=== PATIENT | female | born 2000 | race Asian ===

== ENCOUNTER → 2022-03-02 | Outpatient (CLI) | payer BC | END | disposition home or self-care (01) | LOC: LABWHC1 12:49 | PROVIDERS: ATTEND Obstetrics & Gynecology Reproductive Endocrinology | DX: E28.2 Polycystic ovarian syndrome (principal); N97.8 Female infertility of other origin | CPT/HCPCS: 36415; 84402; 84403 ==

== ENCOUNTER → 2022-04-19 | Outpatient (CLI) | payer OTHER, BC ==
--- NOTE | 2022-04-19 22:09 | MR ---
EXAMINATION TYPE: MR pituitary wo/w con DATE OF EXAM: 04/19/2022 9:24 PM CLINICAL INDICATION:Female, 22 years old with history of E22.1; hyperprolactinemia COMPARISON: None TECHNIQUE: Multi planar, multi sequence imaging was performed through the brain. Specialized thin s equences were obtained through the pituitary gland/sella turcica. Pre-and post gadolinium sequences were obtained. IV Contrast: 7 cc Gadavist FINDINGS: The garber-white junctions, ventricular system, and basal cisterns appear unremarkable. Low T1/high T2 signal lesion in the pituitary more inferiorly measuring 2 x 2 x 2 mm is present which demonstrates d elayed enhancement on postcontrast imaging with respect to the remainder of the gland. The pituitary stalk is not deviated. Diffusion-weighted imaging shows no evidence of restricted diffusion to sugges t infarct. The intracranial arterial flow voids are intact. IMPRESSION: 1. 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 2. No evidence of intracranial mass nor acute/subacute CVA.
== END | disposition home or self-care (01) ==
LOC: RADMRIMAIN 20:30
PROVIDERS: ATTEND Obstetrics & Gynecology Reproductive Endocrinology
DX: E23.6 Other disorders of pituitary gland (principal); E22.1 Hyperprolactinemia
CPT/HCPCS: 70553; A9585

== ENCOUNTER → 2023-03-07 | Outpatient (CLI) | payer MEDICARE, OTHER | END | disposition home or self-care (01) | LOC: LABPAT 12:40 | PROVIDERS: ATTEND Obstetrics & Gynecology Obstetrics | DX: Z53.9 Procedure and treatment not carried out, unspecified reason (principal) ==

== ENCOUNTER 2023-03-09 11:52 | Day surgery (SDC) | payer BC, MEDICARE, OTHER ==
[~2023-03-09 11:52] MED LIST: DEXAMETHASONE SOD PHOSPHATE 4 MG/ML 1 ML VIAL IV ONE; HYDROmorphone 0.5 MG/0.5 ML SYRINGE IVP PRN; LACTATED RINGERS 1,000 ML IV SCH; LIDOCAINE 1% (10MG/ML) FOR IV START INTRADERMA PRN; ONDANSETRON 4 MG/2 ML VIAL IVP ONE; Pre Op ABX Message 1 EACH MISC MISCELLANE ONE; SCOPOLAMINE 1 MG/72 HR PATCH TRANSDERM ONE; droPERidol 5 MG/2 ML VIAL IVP ONE
[2023-03-09 13:34] VITALS: RESP 16
[2023-03-09 13:50] LABS: Glucose,Whole Blood 78 mg/dL (70-110)
[2023-03-09 13:52] LABS: Basophils # (A) 0.1 k/uL (0-0.2); Basophils % (A) 1 %; Eosinophils # (A) 0.2 k/uL (0-0.7); Eosinophils % (A) 2 %; HCT 35.4 % (34.0-46.0); Lymphocytes % (A) 19 %; MCH 31.3 pg (25.0-35.0); MCHC 34.1 g/dL (31.0-37.0); MCV 91.9 fL (80.0-100.0); Mean Platelet Volume 7.6; Monocytes # (A) 0.3 k/uL (0-1.0); Monocytes % (A) 3 %; Neutrophils # (A) 7.6 k/uL (1.3-7.7); Neutrophils % (A) 74 %; Platelet Count 311 k/uL (150-450); RBC 3.85 m/uL (3.80-5.40); RDW 12.7 % (11.5-15.5); WBC 10.3 k/uL (3.8-10.6)
[2023-03-09] MEDS ORDERED: PROPOFOL 10 MG/ML 20 ML VIAL IV ONE (14:03)
[2023-03-09] MEDS ORDERED: fentaNYL (PF) 50 MCG/ML 2 ML AMP ONE (14:03)
[2023-03-09] MEDS ORDERED: LIDOCAINE 1% INJ 10MG/ML (20 ML MDV) ONE (14:03)
[2023-03-09] MEDS ORDERED: KETOROLAC 15 MG/ML 1 ML VIAL ONE (14:03)
[2023-03-09] MEDS ORDERED: MIDAZOLAM 2 MG/2 ML VIAL ONE (14:03)
[2023-03-09 14:33] LABS: Basophils % (A) 0 %; Eosinophils # (A) 0.1 k/uL (0-0.7); Eosinophils % (A) 1 %; HCT 33.2 % (34.0-46.0); HGB 11.4 gm/dL (11.4-16.0); Lymphocytes # (A) 2.2 k/uL (1.0-4.8); Lymphocytes % (A) 23 %; MCH 31.6 pg (25.0-35.0); MCHC 34.4 g/dL (31.0-37.0); Mean Platelet Volume 7.7; Monocytes # (A) 0.3 k/uL (0-1.0); Monocytes % (A) 3 %; Neutrophils # (A) 7.1 k/uL (1.3-7.7); Neutrophils % (A) 71 %; Platelet Count 318 k/uL (150-450); RBC 3.61 m/uL (3.80-5.40); RDW 12.7 % (11.5-15.5)
--- NOTE | 2023-03-09 14:39 | P.OP ---
Date of Procedure: 03/09/23 Preoperative Diagnosis: Missed AB Postoperative Diagnosis: Same Procedure(s) Performed: Suction dilation and curettage Anesthesia: MAC Surgeon: Elvie Byrne Estimated Blood Loss (ml): 10 IV fluids (ml): 400 Urine output (ml): 200 Pathology: other (Uterine contents) Condition: stable Disposition: PACU Indications for Procedure: 23-year-old female that was seen in our time a for fertility testing. Patient was undergoing IVF stimulation cycle when during a she will she was found to be . Patient had multiple ultrasounds revealing nonviable . Patient elected suction dilation and curettage with genetic testing of products of conception. Operative Findings: Moderate amount of products of conception noted upon suction Description of Procedure: Patient was taken back to the operating suite where general anesthesia was obtained without difficulty by the anesthesia department. She was prepped and draped in normal sterile fashion in the dorsal lithotomy position. I [place] catheter was used to drain the bladder of clear yellow urine. A weighted speculum was placed in the posterior vaginal vault. The anterior lip of the cervix is visualized grasped with a single-tooth tenaculum and serially dilated. An 8 mm curved Persian curette was then placed through the cervix and toward the endometrial cavity. Suction was activated and the uterus was cleared of all contents. A gentle sharp curettage revealed an empty uterine cavity. The suction curet was placed into the cavity once again to ensure all products had been removed. No products were appreciated in the suction tubing. The suction curet was removed. The single-tooth tenaculum was taken off of the anterior lip of the cervix. Hemostasis was noted. A small amount of bleeding was a ppreciated after visualization therefore silver nitrate of was placed on one of the single-tooth tenaculum sites. Hemostasis was then noted completely. All instruments removed from the patient's vaginal vault. All counts were noted be correct 2. Patient tolerated procedure well and was taken the recovery room awake in stable condition.
[2023-03-09 15:12] VITALS: TEMP 96.9
[2023-03-09 16:02] VITALS: BP 109/76; PULSE 101
== END 2023-03-09 16:03 | disposition home or self-care (01) ==
LOC: OR 11:52
PROVIDERS: ATTEND Obstetrics & Gynecology Obstetrics
DX: O02.1 Missed abortion (principal)
CPT/HCPCS: 59820; 86900; 86901; 88305; 85025; 86850; J2250; J1100; J2405; J2001; J3010; J1885; J2704

== ENCOUNTER 2023-03-17 23:13 | Emergency (ER) | payer MEDICARE ==
[2023-03-17 23:24] VITALS: RESP 18
[2023-03-18] MEDS ORDERED: ONDANSETRON 4 MG/2 ML VIAL IVP STA (00:07)
[2023-03-18] MEDS ORDERED: SODIUM CHLORIDE 0.9% 1,000 ML IV ONE (00:07)
[2023-03-18] MEDS ORDERED: DICYCLOMINE 20 MG TAB PO STA (00:08)
--- NOTE | 2023-03-18 00:12 | ED ---
Abdominal Pain HPI - General Chief Complaint: Abdominal Pain Stated Complaint: Abdominal Pain, Vomiting, Vaginal Bleeding Time Seen by Provider: 03/17/23 23:27 Source: patient Mode of arrival: ambulatory Limitations: no limitations - History of Present Illness Initial Comments: This patient is 23-year-old woman who presents to have evaluation for lower abdominal pain and vaginal bleeding. She states that the symptoms came on and have been worse over the past approximately 3-4 hours. She states she had bleeding through one overnight had. The patient's history includes having had a D&C on March [address] Evans. She states she did well for approximately 4 days and then had a little bit of bleeding and pain that resolved. Tonight the symptoms came on. She tried taking ibuprofen which didn't relieve the symptoms much. She then took a [place] that she had been prescribed earlier. She states that after that she had the onset of feeling very warm, having nausea and vomited. The pain in the abdomen became very severe and she felt she should be seen here. She states that the symptoms have improved somewhat since they were at their worst. MD Complaint: abdominal pain -: hour(s) Location: LLQ, RLQ, suprapubic Radiation: none Migration to: no migration Severity: moderate Quality: cramping Consistency: constant Improves With: nothing Worsens With: nothing Associated Symptoms: other - Related Data Home Medications Medication Instructions Recorded Confirmed Aspirin 81 mg PO DAILY 03/07/23 03/21/23 Cetirizine HCl [Zyrtec] 10 mg PO DAILY 03/07/23 03/21/23 Levothyroxine Sodium [Synthroid] 50 mcg PO DAILY 03/07/23 03/21/23 Melatonin 10 mg PO HS 03/07/23 03/21/23 Progesterone, Micronized 200 mg PO BID 03/07/23 03/21/23 [Progesterone] Unk Fiber Gummie 1 tab PO DAILY 03/07/23 03/21/23 Unk Metformin (750) 1 tab PO BID 03/07/23 03/21/23 Unk Vitamin 1 tab PO DAILY 03/07/23 03/21/23 Previous Rx's Medication Instructions Recorded Acetaminophen Tab [Tylenol] 650 mg PO Q6H PRN #30 tab 03/21/23 Ibuprofen [Motrin] 600 mg PO Q6HR PRN #30 tab 03/21/23 Allergies Allergy/AdvReac Type Severity Reaction Status Date / Time Pertussis Vaccines Allergy low grade Verified 03/21/23 16:20 fever Review of Systems ROS Statement: Those systems with pertinent positive or pertinent negative responses have been documented in the HPI. ROS Other: All systems not noted in ROS Statement are negative. Constitutional: Denies: fever, chills, weakness Respiratory: Denies: cough, dyspnea Cardiovascular: Denies: chest pain, palpitations, edema Gastrointestinal: Reports: abdominal pain, nausea, vomiting. Denies: diarrhea, constipation, melena, hematochezia Genitourinary: Reports: abnormal menses. Denies: dysuria, hematuria Musculoskeletal: Denies: back pain Skin: Denies: rash Neurological: Denies: headache, weakness Past Medical History Past Medical History: Diabetes Mellitus, Thyroid Disorder Additional Past Medical History / Comment(s): watching blood sugars on metformin. pituatary issues- prolactin elevated. 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 hysterscopy and laporscopy. wisdom teeth Past Anesthesia/Blood Transfusion Reactions: No Reported Reaction Past Psychological History: No Psychological Hx Reported Smoking Status: Never smoker - Past Family History Mother History Unknown: Yes Additional Family Medical History / Comment(s): pt adopted General Exam Limitations: no limitations General appearance: alert, in no apparent distress Head exam: Present: atraumatic, normocephalic Eye exam: Present: normal appearance Neck exam: Present: normal inspection Respiratory exam: Present: normal lung sounds bilaterally. Absent: respiratory distress, wheezes, rales, rhonchi, stridor, accessory muscle use Cardiovascular Exam: Present: regular rate, normal rhythm, normal heart sounds. Absent: systolic murmur, diastolic murmur, rubs, gallop GI/Abdominal exam: Present: soft. Absent: distended, tenderness, guarding, rebound, rigid, mass, pulsatile mass, hernia Extremities exam: Present: normal inspection, normal capillary refill. Absent: pedal edema, calf tenderness Back exam: Present: normal inspection. Absent: CVA tenderness (R), CVA tenderness (L) Neurological exam: Present: alert Skin exam: Present: warm, dry, intact, normal color. Absent: rash Course Vital Signs 03/17/23 03/17/23 03/17/23 23:20 23:32 23:33 Temperature 97.9 F 98.0 F Pulse Rate 85 67 86 Respiratory 18 18 18 Rate Blood Pressure 97/63 106/73 O2 Sat by Pulse 97 99 99 Oximetry 03/18/23 03/18/23 03/18/23 00:00 01:00 02:00 Temperature Pulse Rate 72 73 74 Respiratory 18 18 18 Rate Blood Pressure 106/73 110/72 109/69 O2 Sat by Pulse 99 99 98 Oximetry 03/18/23 03/18/23 03:00 05:06 Temperature 98.1 F Pulse Rate 68 76 Respiratory 18 18 Rate Blood Pressure 112/74 102/68 O2 Sat by Pulse 97 100 Oximetry Medical Decision Making - Medical Decision Making This patient is 23-year-old woman with abdominal pain. The patient complaining of low abdominal pain and vaginal bleeding. She did decline gynecologic exam, but did have pelvic ultrasound. The ultrasound does show what appears to be complex cyst with suspected recent hemorrhage. The patient feeling better with medication. At this point she would like to go home and will have close follow- up with Dr. Evans. Discussed that ultrasound does indicate small chance of infection but patient feeling much better, not having fever, and only minimal tenderness. She understands to return if the symptoms recur or if any new symptoms develop. She is otherwise going to follow with Dr. Evans in the clinic [facility]. Was pt. sent in by a medical professional or institution (, PA, MANAGER INVESTMENT, urgent care, hospital, or [facility]...) When possible be specific @ -[No] Did you speak to anyone other than the patient for history (EMS, parent, family, police, friend...)? What history was obtained from this source @ -[No] Did you review nursing and triage notes (agree or disagree)? Why? @ -[I reviewed and agree with nursing and triage notes] Were old charts reviewed (outside hosp., previous admission, EMS record, old EKG, old radiological studies, urgent care reports/EKG's, [facility] records)? Report findings @ -[No old charts were reviewed] Differential Diagnosis (chest pain, altered mental status, abdominal pain women, abdominal pain men, vaginal bleeding, weakness, fever, dyspnea, syncope, headache, dizziness, GI bleed, back pain, seizure, CVA, palpatations, mental health, musculoskeletal)? @ -[Differential Abdominal Pain Women: Appendicitis, Cholecystitis, diverticulosis, ischemic bowel, pancreatitis, hepatitis, UTI, gastroenteritis, AAA, incarcerated hernia, bowel obstruction, constipation, inflammatory bowel, hepatitis, peptic ulcer disease, splenic infarction, perforated viscus, vulvitis, ovarian torsion, PID, kidney stone, placenta abruption, this is not meant to be an all-inclusive list EKG interpreted by me (3pts min.). @ -[As above] X-rays interpreted by me (1pt min.). @ -[None done] CT interpreted by me (1pt min.). @ -[None done] U/S interpreted by me (1pt. min.). @ -[None done] What testing was considered but not performed or refused? (CT, X-rays, U/S, labs)? Why? @ -[None] What meds were considered but not given or refused? Why? @ -[None] Did you discuss the management of the patient with other professionals (professionals i.e. , PA, MANAGER INVESTMENT, lab, RT, psych nurse, psychotherapist social worker, capsule filler, teacher, chief business officer, case resource manager)? Give summary @ -[No] Was smoking cessation discussed for >3mins.? @ -[No] Was critical care preformed (if so, how long)? @ -[No] Were there social determinants of health that impacted care today? How? (Homelessness, low income, unemployed, alcoholism, drug addiction, transportation, low edu. Level, literacy, decrease access to med. care, fdc, rehab)? @ -[No] Was there de-escalation of care discussed even if they declined (Discuss DNR or withdrawal of care, Hospice)? DNR status @ -[No] What co-morbidities impacted this encounter? (DM, HTN, Smoking, COPD, CAD, Cancer, CVA, ARF, Chemo, Hep., AIDS, mental health diagnosis, sleep apnea, morbid obesity)? @ -[None] Was patient admitted / discharged? Hospital course, mention meds given and route, prescriptions, significant lab abnormalities, going to OR and other pertinent info. @ -[As above Undiagnosed new problem with uncertain prognosis? @ -[No] Drug Therapy requiring intensive monitoring for toxicity (Heparin, Nitro, Insulin, Cardizem)? @ -[No] Were any procedures done? @ -[No] Diagnosis/symptom? @ -[Acute abdominal pain ovarian cyst Acute, or Chronic, or Acute on Chronic? @ -[Acute Uncomplicated (without systemic symptoms) or Complicated (systemic symptoms)? @ -[Uncomplicated Side effects of treatment? @ -[No] Exacerbation, Progression, or Severe Exacerbation? @ -[No] Poses a threat to life or bodily function? How? (Chest pain, [place], [place], pneumonia, PE, COPD, DKA, ARF, appy, cholecystitis, CVA, Diverticulitis, Homicidal, Suicidal, threat to staff... and all critical care pts) @ -[There is small risk associated with the free fluid in the abdomen, therefore patient to have close follow-up returning if any symptoms recur. She understands need for close follow-up - Lab Data Result diagrams: 03/18/23 00:33 03/18/23 00:33 Lab Results 03/18/23 03/18/23 03/18/23 Range/Units 00:33 00:33 00:33 WBC 17.6 H (3.8-10.6) k/uL RBC 3.99 (3.80-5.40) m/uL Hgb 12.4 (11.4-16.0) gm/dL Hct 37.0 (34.0-46.0) % MCV 92.8 (80.0-100.0) fL MCH 31.0 (25.0-35.0) pg MCHC 33.5 (31.0-37.0) g/dL RDW 12.6 (11.5-15.5) % Plt Count 353 (150-450) k/uL MPV 7.6 Neutrophils % 86 % Lymphocytes % 10 % Monocytes % 3 % Eosinophils % 1 % Basophils % 0 % Neutrophils # 15.1 H (1.3-7.7) k/uL Lymphocytes # 1.7 (1.0-4.8) k/uL Monocytes # 0.4 (0-1.0) k/uL Eosinophils # 0.2 (0-0.7) k/uL Basophils # 0.1 (0-0.2) k/uL Sodium 136 L (137-145) mmol/L Potassium (3.5-5.1) mmol/L Chloride 102 (98-107) mmol/L Carbon Dioxide 23 (22-30) mmol/L Anion Gap 11 mmol/L BUN 13 (7-17) mg/dL Creatinine 0.49 L (0.52-1.04) mg/dL Est GFR (CKD-EPI)AfAm >90 (>60 ml/min/1.73 sqM) Est GFR (CKD-EPI)NonAf >90 (>60 ml/min/1.73 sqM) Glucose 109 H (74-99) mg/dL Plasma Lactic Acid Faisal 1.3 (0.7-2.0) mmol/L Calcium 8.8 (8.4-10.2) mg/dL Total Bilirubin 2.0 H (0.2-1.3) mg/dL AST 90 H (14-36) U/L ALT 28 (4-34) U/L Alkaline Phosphatase 58 (38-126) U/L Total Protein 9.4 H (6.3-8.2) g/dL Albumin 5.3 H (3.5-5.0) g/dL Disposition Clinical Impression: Abdominal pain Disposition: HOME SELF-CARE Condition: Good Instructions (If sedation given, give patient instructions): Abdominal Pain (ED) Is patient prescribed a controlled substance at d/c from ED?: No Referrals: Jodi Killian MD [Primary Care Provider] - 1-2 days
[2023-03-18 00:37] LABS: Basophils # (A) 0.1 k/uL (0-0.2); Basophils % (A) 0 %; Eosinophils # (A) 0.2 k/uL (0-0.7); Eosinophils % (A) 1 %; HGB 12.4 gm/dL (11.4-16.0); Lymphocytes # (A) 1.7 k/uL (1.0-4.8); Lymphocytes % (A) 10 %; MCHC 33.5 g/dL (31.0-37.0); MCV 92.8 fL (80.0-100.0); Mean Platelet Volume 7.6; Monocytes # (A) 0.4 k/uL (0-1.0); Monocytes % (A) 3 %; Neutrophils # (A) 15.1 k/uL (1.3-7.7); Neutrophils % (A) 86 %; Platelet Count 353 k/uL (150-450); RBC 3.99 m/uL (3.80-5.40); RDW 12.6 % (11.5-15.5); WBC 17.6 k/uL (3.8-10.6)
[2023-03-18 00:54] LABS: ALT 28 U/L (4-34); AST 90 U/L (14-36); African American GFR (CKD) >90 (>60 ml/min/1.73 sqM); Albumin 5.3 g/dL (3.5-5.0); Alkaline Phosphatase 58 U/L (38-126); Anion Gap 11 mmol/L; Blood Urea Nitrogen 13 mg/dL (7-17); Calcium 8.8 mg/dL (8.4-10.2); Carbon Dioxide 23 mmol/L (22-30); Chloride 102 mmol/L (98-107); Glucose 109 mg/dL (74-99); Non-African American GFR(CKD) >90 (>60 ml/min/1.73 sqM); Sodium 136 mmol/L (137-145); Total Protein 9.4 g/dL (6.3-8.2)
[2023-03-18] MEDS ORDERED: MORPHINE SULFATE 4 MG/ML SYRINGE IV STA (04:45)
[2023-03-18 05:28] VITALS: BP 102/68; PULSE 76; TEMP 98.1
--- NOTE | 2023-03-18 05:52 | US ---
EXAM: US Pelvis Transvaginal CLINICAL HISTORY: ITS.REASON US Reason: pain after D+C TECHNIQUE: Real-time transvaginal pelvic ultrasound with image documentation. Transvaginal imaging was used for better evaluation of the endometrium and adnexa. COMPARISON: No relevant prior studies available. FINDINGS: Uterus/cervix: The uterus is anteverted and mildly retroflexed measuring 8.4 cm in length. The endometrial stripe is unremarkable measuring 9.7 mm. No myometrial mass. Right ovary: 3.1 cm anechoic lesion seen within the right ovary which may represent a dominant ovarian follicle versus ovarian cyst. The right ovary measures 4.0 x 3.7 x 3.3 cm. Normal blood flow. Left ovary: Likely complex cyst is seen within the left ovary measuring 2.8 cm. The left ovary measures 4.8 x 3.4 x 4.8 cm. Normal blood flow. Free fluid: Complex fluid is seen within the cul-de-sac measuring 4.8 x 4.6 x 1.9 cm. Bladder: Unremarkable. IMPRESSION: 1. Complex fluid seen within the cul-de-sac, this may represent hemorrhagic or infectious debris. 2. Likely dominant left ovarian follicle. 3. Unremarkable evaluation of the endometrial stripe. 4. Likely complex cyst seen within the left ovary. Consider follow-up ultrasound in 3 months time.
== END 2023-03-18 05:07 | disposition home or self-care (01) ==
LOC: EC 23:13
DX: R10.32 Left lower quadrant pain (principal); R10.31 Right lower quadrant pain; E11.9 Type 2 diabetes mellitus without complications; E07.9 Disorder of thyroid, unspecified; Z79.84 Long term (current) use of oral hypoglycemic drugs; Z79.890 Hormone replacement therapy; Z88.7 Allergy status to serum and vaccine
CPT/HCPCS: 99284 ×2; 96374 ×2; 96375 ×2; 96361 ×2; 36415; 80053; 83605; 85025; 93975; 76856; 76830; J2270; J2405

== ENCOUNTER 2023-03-21 15:22 | Day surgery (SDC) | payer MEDICARE ==
[~2023-03-21 15:22] MED LIST changes: -DEXAMETHASONE SOD PHOSPHATE 4 MG/ML 1 ML VIAL IV ONE; -LACTATED RINGERS 1,000 ML IV SCH; -LIDOCAINE 1% (10MG/ML) FOR IV START INTRADERMA PRN; -ONDANSETRON 4 MG/2 ML VIAL IVP ONE; -SCOPOLAMINE 1 MG/72 HR PATCH TRANSDERM ONE; -droPERidol 5 MG/2 ML VIAL IVP ONE
[2023-03-21 15:57] LABS: Glucose,Whole Blood 89 mg/dL (70-110)
[2023-03-21] MEDS ORDERED: LACTATED RINGERS 1,000 ML IV ONE ×3 (16:01→21:47)
[2023-03-21] MEDS ORDERED: LIDOCAINE 1% (10MG/ML) FOR IV START INTRADERMA ONE (16:01)
[2023-03-21] MEDS ORDERED: ONDANSETRON 4 MG/2 ML VIAL ONE (16:11)
[2023-03-21] MEDS ORDERED: ONDANSETRON 4 MG/2 ML VIAL IVP ONE (16:13)
[2023-03-21] MEDS ORDERED: DEXAMETHASONE SOD PHOSPHATE 4 MG/ML 1 ML VIAL IVP ONE (16:15)
[2023-03-21 16:28] LABS: Basophils # (A) 0.1 k/uL (0-0.2); Basophils % (A) 1 %; Eosinophils # (A) 0.2 k/uL (0-0.7); Eosinophils % (A) 3 %; HCT 33.8 % (34.0-46.0); HGB 11.5 gm/dL (11.4-16.0); Lymphocytes % (A) 23 %; MCH 31.1 pg (25.0-35.0); MCV 91.5 fL (80.0-100.0); Mean Platelet Volume 7.5; Monocytes # (A) 0.3 k/uL (0-1.0); Monocytes % (A) 3 %; Neutrophils # (A) 6.1 k/uL (1.3-7.7); Neutrophils % (A) 69 %; Platelet Count 378 k/uL (150-450); RDW 12.7 % (11.5-15.5); WBC 8.7 k/uL (3.8-10.6)
[2023-03-21] MEDS ORDERED: fentaNYL (PF) 50 MCG/ML 2 ML AMP IVP ONE (19:48)
[2023-03-21] MEDS ORDERED: HYDROmorphone (PF) 1 MG/ML ONE (19:50)
[2023-03-21] MEDS ORDERED: SUCCINYLCHOLINE CHLORIDE 200 MG/10 ML VIAL IV ONE (19:50)
[2023-03-21] MEDS ORDERED: ROCURONIUM 10 MG/ML (5 ML VIAL) IV ONE (19:50)
[2023-03-21] MEDS ORDERED: GLYCOPYRROLATE 0.2 MG/ML 2 ML VIAL ONE (19:50)
[2023-03-21] MEDS ORDERED: KETOROLAC 30 MG/ML 1 ML VIAL ONE (19:50)
[2023-03-21] MEDS ORDERED: PROPOFOL 10 MG/ML 20 ML VIAL IV ONE (19:50)
[2023-03-21] MEDS ORDERED: BUPIVACAINE (PF) 0.25% 30 ML VIAL SQ ONE (19:50)
[2023-03-21] MEDS ORDERED: ceFAZolin 1,000 MG VIAL IVPB ONE (19:50)
[2023-03-21] MEDS ORDERED: NEOSTIGMINE 1 MG/ML 10 ML VIAL ONE (19:50)
[2023-03-21] MEDS ORDERED: LIDOCAINE 1% INJ 10MG/ML (20 ML MDV) ONE (19:50)
[2023-03-21] MEDS ORDERED: LACTATED RINGERS 1,000 ML IV SCH (21:15)
--- NOTE | 2023-03-21 21:20 | P.OP ---
Date of Procedure: 03/21/23 Preoperative Diagnosis: Right Tubal Ectopic Postoperative Diagnosis: Same Procedure(s) Performed: Laparoscopic Right Salpingectomy, Evacuation of Hemoperitoneum Implants: None Anesthesia: KUNAL Surgeon: Maggie Contreras Estimated Blood Loss (ml): 200 IV fluids (ml): 1,000 Urine output (ml): 800 Pathology: other (right fallopian tube, ectopic ) Condition: stable Disposition: observation Indications for Procedure: Ms. Johansen is a 23 year old 12 days post-operative from a suction d&c for presumed missed . She presented this week with severe abdominal pain not improved with Motrin, nausea, and diarrhea. Ultrasonography in the office today showed no intrauterine and no evidence of retained products. However, there was a 7-8 centimeter complex mass medial to the right ovary suspicious for ectopic . There was also some complex fluid suspicious for hemoperitoneum seen on the ultrasound. Laparoscopic salpingectomy was discused with the patient and recommended given finding of blood in the pelvis, concerning for partial rupture. The risks, benefits, and alternatives for larparoscopic right salpingectomy were discussed with the patient including risk of bleeding, infection, damage to surrounding structures including bladder/bowel/ureters/ovaries. The patient understands these risks and desires to proceed with surgery as discussed. Operative Findings: Large right tubal ectopic seen, partially ruptured with approximately 300 cc of hemoperitoneum in the pelvis. Unicornuate uterus appreciates. Bilateral ovaries healthy-appearing. Left fallopian tube is seemingly also attached to the uterus (patient was previously told it was not). Description of Procedure: Patient was taken to the OR with IV fluid running and pneumatic compression stockings on both legs. General anesthesia was obtained without difficulty. The patient was placed in the dorsal lithotomy position with Dex-type stirrups with knees bent at 30 degree angles. Examination under anesthesia revealed a normal-sized, anteverted uterus. The patient as prepared and draped. The bladder was emptied. A speculum was placed into the vagina. The anterior lip of the cervix was grasped with a single-toothed tenaculum. A uterine manipulator was introduced. A vertical skin incision was made at the umbilical fold. The periumbilical skin was manually elevated. A 5mm trocar was inserted into the abdomen under direct laparoscopic visualization. Intraabdominal survey revealed lack of any visceral or vascular injury. The pelvic and abdominal anatomy was noted as above. Two additional laparoscopic assit ports were placed in the right and left lower quadrants. A Celia Grasper was used to corn picker the cornua of the right fallopian tube. This was then cauterized and cut with the LigaSure device sequentally from the cornua to the fimbriated end. The right lower quadrant incision was extended to accomodate a 10mm trocar. An EndoCatch bag was inserted through the trocar and used to remove the specimen. Excellent hemostasis was noted at the end of the case. The patient tolerated the procedure well. All instruments were removed from the abdomen. 0-Vicryl was used to close the fascia at the right lower quadrant site. All incisions were closed with 4-0 Monocryl in a subcuticular fashion. The manipulator was removed from the vagina. All counts were correct times two. The patient was taken to the recovery room in stable condition.the recovery room in stable condition.
[2023-03-21] MEDS ORDERED: IBUPROFEN 600 MG TAB PO PRN (21:23)
[2023-03-21] MEDS ORDERED: SIMETHICONE 80 MG CHEWABLE PO PRN (21:23)
[2023-03-21 21:32] LABS: Glucose,Whole Blood 136 mg/dL (70-110)
[2023-03-21] MEDS ORDERED: HYDROmorphone 0.5 MG/0.5 ML SYRINGE IVP ONE (21:37)
[2023-03-21 21:50] VITALS: RESP 16
[2023-03-21 22:56] VITALS: TEMP 98.5
--- NOTE | 2023-03-22 06:17 | P.PN ---
Subjective Progress Note Date: 03/22/23 Principal diagnosis: POD#1 s/p Laparoscopic Right Salpingectomy 2/2 tubal ectopic The patient is doing well this morning and had no acute events overnight. She has no complaints this morning. She reports minimal lochia, passing flatus, voiding without difficulty, ambulating, and eating/drinking without nausea or vomiting. She denies pain. She denies chest pain, shortness of breathing, fevers, or chills overnight. She denies pain or swelling in the legs. Objective - Vital Signs Vital signs: Vital Signs Temp 98.5 F 03/21/23 22:00 Pulse 104 H 03/22/23 00:25 Resp 16 03/22/23 00:25 BP 103/61 03/22/23 00:25 Pulse Ox 94 L 03/22/23 00:25 FiO2 Intake & Output 03/21/23 03/21/23 03/22/23 06:59 18:59 06:59 Intake Total 100 1900 Output Total 1000 Balance 100 900 Weight 70.3 kg 70.3 kg Intake: IV 100 1900 Output: Urine 800 Estimated Blood Loss 200 - Gastrointestinal Gastrointestinal Comment(s): incisions clean, dry, and intact General gastrointestinal: Present: normal bowel sounds - Psychiatric Psychiatric: Present: A&O x's 3, appropriate affect, intact judgment & insight - Additional findings Additional findings: Extremities nontender, nonedematous - Labs CBC & Chem 7: 03/21/23 16:02 Labs: Abnormal Lab Results - Last 24 Hours (Table) 03/21/23 03/21/23 Range/Units 16:02 21:31 RBC 3.70 L (3.80-5.40) m/uL Hct 33.8 L (34.0-46.0) % POC Glucose (mg/dL) 136 H (70-110) mg/dL Assessment and Plan Assessment: 23 year old now POD#1 s/p Right Laparoscopic Salpingectomy 2/2 tubal ectopic Plan: Patient meeting all postoperative milestones appropriately. Plan for discharge home this morning. Will go home with prescription for Motrin and Tylenol, declines narcotics. Patient is to follow up in the office in 2 weeks for post- operative visit. Time with Patient: Less than 30
[2023-03-22 07:55] LABS: Basophils % (A) 0 %; Eosinophils % (A) 0 %; HCT 29.8 % (34.0-46.0); HGB 10.1 gm/dL (11.4-16.0); Lymphocytes # (A) 1.7 k/uL (1.0-4.8); Lymphocytes % (A) 13 %; MCH 31.3 pg (25.0-35.0); MCHC 33.8 g/dL (31.0-37.0); MCV 92.7 fL (80.0-100.0); Mean Platelet Volume 7.5; Monocytes # (A) 0.4 k/uL (0-1.0); Monocytes % (A) 3 %; Neutrophils # (A) 10.6 k/uL (1.3-7.7); Neutrophils % (A) 83 %; Platelet Count 366 k/uL (150-450); RBC 3.22 m/uL (3.80-5.40); RDW 12.6 % (11.5-15.5); WBC 12.8 k/uL (3.8-10.6)
[2023-03-22 08:33] VITALS: BP 111/73; PULSE 83
[2023-03-22] MEDS ORDERED: ACETAMINOPHEN TAB 325 MG TAB PO PRN (21:23)
== END 2023-03-22 09:21 | disposition home or self-care (01) ==
LOC: OR 15:22 → 4FBP 21:12 → OR 03-22 09:21
PROVIDERS: ATTEND Obstetrics & Gynecology
DX: O00.101 Right tubal pregnancy without intrauterine pregnancy (principal); Z79.899 Other long term (current) drug therapy; Z98.890 Other specified postprocedural states
CPT/HCPCS: 59151; 86900; 86901; 88305; 85025 ×2; 86850; J0330; J1100; J2710; J2405; J0690; J2001; J3010; J1885; J1170 ×2; J2704; J0665

== ENCOUNTER 2023-11-07 15:05 | Emergency (ER) | payer OTHER ==
[2023-11-07] MEDS ORDERED: diphenhydrAMINE 50 MG/ML 1 ML VIAL ONE (16:46)
[2023-11-07] MEDS ORDERED: SODIUM CHLORIDE 0.9% 1,000 ML BAG ONE (17:05)
[2023-11-07] MEDS ORDERED: MORPHINE SULFATE 4 MG/ML SYRINGE ONE (20:19)
== END 2023-11-07 20:35 | disposition home or self-care (01) ==
LOC: EC 15:05
CPT/HCPCS: 96361; 96365; 96375; 99283

== ENCOUNTER 2024-02-11 09:40 | Inpatient (IN) | payer MEDICARE ==
[2024-02-11] MEDS ORDERED: METHYLERGONOVINE 0.2 MG/ML 1 ML AMP IM PRN (10:26)
[2024-02-11] MEDS ORDERED: CARBOPROST TROMETHAMINE 250 MCG/ML 1 ML AMP IM PRN (10:26)
[2024-02-11] MEDS ORDERED: TERBUTALINE 1 MG/ML VIAL SQ PRN (10:26)
[2024-02-11] MEDS ORDERED: miSOPROStoL 200 MCG TAB PO PRN (10:26)
[2024-02-11] MEDS ORDERED: LIDOCAINE 0.5% (PF) 5 MG/ML (50 ML SDV) SQ PRN (10:26)
[2024-02-11] MEDS ORDERED: TRANEXAMIC 1,000 MG/100ML-NACL 1,000 MG in EMPTY BAG 1 BAG IV PRN (10:26)
[2024-02-11] MEDS ORDERED: OXYTOCIN 10 UNIT/ML 1 ML VIAL IM PRN (10:26)
[2024-02-11] MEDS ORDERED: miSOPROStoL 200 MCG TAB RECTAL PRN (10:26)
[2024-02-11 10:48] LABS: Basophils % (A) 0 %; Eosinophils # (A) 0.1 k/uL (0-0.7); Eosinophils % (A) 1 %; HGB 12.2 gm/dL (11.4-16.0); Lymphocytes # (A) 1.6 k/uL (1.0-4.8); Lymphocytes % (A) 17 %; MCH 30.9 pg (25.0-35.0); MCHC 32.9 g/dL (31.0-37.0); Mean Platelet Volume 9.2; Monocytes # (A) 0.4 k/uL (0-1.0); Monocytes % (A) 4 %; Neutrophils # (A) 7.2 k/uL (1.3-7.7); Neutrophils % (A) 76 %; Platelet Count 195 k/uL (150-450); RBC 3.93 m/uL (3.80-5.40); RDW 13.6 % (11.5-15.5); WBC 9.4 k/uL (3.8-10.6)
[2024-02-11] MEDS: AMPICILLIN 2,000 MG in SODIUM CHLORIDE 0.9% 100 ML IVPB STA (12:31)
[2024-02-11] MEDS: LACTATED RINGERS 1,000 ML IV SCH (12:31)
[2024-02-11] MEDS ORDERED: NALBUPHINE 10 MG/ML (10 ML MDV) IV PRN (13:17)
--- NOTE | 2024-02-11 13:17 | P.HPOB ---
History of Present Illness H&P Date: 02/11/24 Chief Complaint: IUP at 36-4/7 weeks, spontaneous rupture membranes This is a 24-year-old -0-1-0 at 36-4/7 weeks that presents to labor and delivery with complaints of rupture of membranes. Patient states she noted passage of her mucous plug yesterday with some leakage. AmniSure noted to be positive in triage. Patient has been receiving routine care which has been complicated by a diagnosis of a unicornuate uterus, known hypothyroidism that has been controlled. This was achieved by IVF.. Patient does note good movement, denies contractions. On blood work this patient has a blood type of O+, rubella status immune, hepatitis B surface engine negative, HIV negative, RPR is nonreactive, hepatitis C is nonreactive, grew beta strep cultures negative. Review of Systems Constitutional: Denies chills, Denies fatigue, Denies fever Ears, nose, mouth and throat: Denies headache Cardiovascular: Reports leg edema Respiratory: Denies dyspnea Gastrointestinal: Denies constipation, Denies diarrhea, Denies nausea, Denies vomiting Genitourinary: Reports Past Medical History Past Medical History: Thyroid Disorder Additional Past Medical History / Comment(s): watching blood sugars on metformin. pituatary issues- prolactin elevated. 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 hysterscopy and laporscopy. wisdom teeth Past Anesthesia/Blood Transfusion Reactions: No Reported Reaction Past Psychological History: No Psychological Hx Reported Smoking Status: Never smoker Past Alcohol Use History: Occasional Past Drug Use History: None Reported - Past Family History Mother History Unknown: Yes Additional Family Medical History / Comment(s): pt adopted Medications and Allergies Home Medications Medication Instructions Recorded Confirmed Type Aspirin 81 mg PO DAILY 03/07/23 02/11/24 History Cetirizine HCl [Zyrtec] 10 mg PO DAILY 03/07/23 02/11/24 History Levothyroxine Sodium [Synthroid] 50 mcg PO DAILY 03/07/23 02/11/24 History Unk Metformin (750) 1 tab PO BID 03/07/23 02/11/24 History Unk Vitamin 1 tab PO DAILY 03/07/23 02/11/24 History Allergies Allergy/AdvReac Type Severity Reaction Status Date / Time Pertussis Vaccines AdvReac low grade Verified 02/11/24 09:48 fever Exam Osteopathic Statement: *. No significant issues noted on an osteopathic structural exam other than those noted in the History and Physical/Consult. Vital Signs Temp Pulse Resp BP 02/11/24 10:29 97.4 F L 82 18 124/82 Intake and Output 02/10/24 02/11/24 02/11/24 22:59 06:59 14:59 Other: # Voids 1 Weight 78.018 kg Targeted physical exam is performed this date General Is well-nourished well- developed female in no acute distress, breathing is noted to be nonlabored, heart has a regular rate and rhythm, abdomen is gravid, on cervical exam she is fingertip/50/-3 station vertex presentation was confirmed by ultrasound last week. Dilapan was placed according to guidelines. Cervix was washed with Betadine, 5 Dilapan rods were placed sequentially. Patient tolerated insertion well. Results Result Diagrams: 02/11/24 10:30 Assessment and Plan (1) 36 to 37 weeks gestation of Current Visit: Yes Status: Acute Code(s): STE1065 - SNOMED Code(s): 319136255 (2) PROM (premature rupture of membranes) Current Visit: Yes Status: Acute Code(s): O42.90 - SENA ROM, 7TH0 BETW RUPT & ONST LABR, UNSP WEEKS OF GEST SNOMED Code(s): 87629773 (3) Unicornuate uterus Current Visit: Yes Status: Acute Code(s): Q51.4 - UNICORNATE UTERUS SNOMED Code(s): 3211704 Plan: 24-year-old G2, P0 at 36-4/7 weeks that presents with complaints of spontaneous rupture of membranes yesterday. Patient is known GBS negative. Antibiotics are begun for prophylaxis given time since rupture of membranes. Dilapan was placed without difficulty given unfavorable cervix. Will plan Pitocin augmentation of labor early a.m. Options for analgesia are discussed including Nubain, nitrous, epidural.
[2024-02-11] MEDS: AMPICILLIN 1,000 MG in SODIUM CHLORIDE 0.9% 50 ML IVPB SCH (16:03)
[2024-02-12] MEDS: OXYTOCIN 30 UNITS/500 ML NS 30 UNIT in SALINE 1 500ML.BAG IV SCH (04:25)
[2024-02-12] MEDS ORDERED: fentaNYL (PF) 50 MCG/ML 5 ML AMP ONE (12:21)
[2024-02-12] MEDS ORDERED: SODIUM CHLORIDE 0.9% 250 ML BAG ONE (12:21)
[2024-02-12] MEDS ORDERED: ROPIVACAINE 5 MG/ML 30 ML VIAL ONE (12:21)
[2024-02-12] MEDS ORDERED: TRANEXAMIC 1,000 MG/100ML-NACL 1,000 MG in EMPTY BAG 1 BAG IV PRN (18:04)
[2024-02-12] MEDS ORDERED: CARBOPROST TROMETHAMINE 250 MCG/ML 1 ML AMP IM PRN (18:04)
[2024-02-12] MEDS ORDERED: miSOPROStoL 200 MCG TAB PO PRN (18:04)
[2024-02-12] MEDS: CITRIC ACID-SODIUM CITRATE 15 ML CUP PO ONE (18:14)
[2024-02-12] MEDS ORDERED: ePHEDrine 50 MG/ML 1 ML VIAL ONE (18:22)
[2024-02-12] MEDS ORDERED: ceFAZolin 1 GM/50 ML BAG (PMX) ONE (18:22)
[2024-02-12] MEDS ORDERED: MORPHINE SULFATE (PF) 0.3 MG/0.3 ML SYR ONE (18:22)
[2024-02-12] MEDS ORDERED: OXYTOCIN 30 UNITS/500 ML NS BAG IV ONE (18:22)
[2024-02-12] MEDS ORDERED: ONDANSETRON 4 MG/2 ML VIAL ONE (18:22)
--- NOTE | 2024-02-12 19:06 | P.OP ---
Date of Procedure: 02/12/24 Preoperative Diagnosis: IUP at 36 and 5, PPROM, arrest of dilation, unicornuate uterus Postoperative Diagnosis: Same Procedure(s) Performed: Primary low-transverse section Anesthesia: epidural Surgeon: Elvie Byrne Lease Administrator #1: Roge Au Estimated Blood Loss (ml): 815 IV fluids (ml): 1,000 Urine output (ml): 100 (Consent treated in appearance) Pathology: none sent Condition: stable Disposition: observation Indications for Procedure: 24-year-old G2, P0 at 36-5/7 weeks who presented to labor and delivery yesterday with complaints of rupture of membranes Sunday, AmniSure was noted to be scant positive. Patient underwent Dilapan insertion was completed around 1300, she did well through the night. Dilapan was removed and patient was noted to be 4 cm, membrane was palpated and rupture of membrane was completed copious clear fluid was appreciated. Pitocin was started for augmentation of labor, patient did become uncomfortable and request epidural. Epidural was placed without di fficulty by the anesthesia department. Throughout the day patient made no cervical change. Given length of time since rupture and no cervical change throughout the day patient was counseled on primary low-transverse section. Discussion was had with patient and significant other all questions were answered, patient stated understanding and wished to proceed. Operative Findings: Unicornuate uterus appreciated, absence of right fallopian tube underdeveloped left fallopian tube and appearance, normal ovaries bilaterally, viable male infant delivered at 1836, weight of 6 pounds 9 ounces, Apgars of 9 and 9 at 1 and 5 minutes respectively. Description of Procedure: The patient was prepped and draped in the usual fashion after epidural anesthesia was found to be adequate. A Pfannenstiel incision was made and extended of the abdominal cavity without difficulty. The bladder peritoneum was elevated and incised and reflected distally. A 2 cm incision was made in the transverse plane of the lower uterine segment to enter the uterus at which time clear fluid was noted. The incision was extended in both directions using the bandage scissors. The head was encountered within the field and delivered up and through the incision where the nose and mouth were thoroughly suctioned. Remainder of the was delivered onto the surgical field where the cord was doubly clamped, cut, and the infant was passed for resuscitative measures with weight and Apgars as noted above. The placenta was delivered manually, intact, and was grossly normal with a grossly normal three-vessel cord. The uterus was exteriorized and the interior cavity of the uterus swept of any remaining placental and membranous fragments with a laparotomy sponge. The margins of the incision were grasped with Allis clamps and the incision closed in 2 layers. First layer was a running locking layer of 0 Vicryl from margin to margin followed by a second layer of imbricating 0 Vicryl from margin to margin. Eating was noted on the right lateral edge therefore a [id number] 2 0 was used to obtain hemostasis. Any small points of bleeding were then made hemostatic with the Bovie. Once hemostasis was achieved, the posterior cul-de-sac was suctioned with a guard and the uterine and ovarian findings are as noted above. The uterus was replaced within the abdominal cavity and the gutters swept of any remaining blood fluid or clot. The incision was again reexamined and hemostasis was noted to be excellent. Any small point of bleeding were made hemostatic with the Bovie. Once hemostasis was achieved the parietal peritoneum was loosely reapproximated. The layer of muscles were examined and made hemostatic with the Bovie. Attention was then turned to the fascia which was closed with a running stitches of 0 Vicryl proceeding from the lateral edge to the other. The subcutaneous tissues were irrigated, made hemostatic with the Bovie, and reapproximated with a running stitch of 30 Vicryl. The skin was reapproximated with regular surgical callie. Estimated blood loss for the case was approximately 615 mL. All sponge instrument and needle counts are correct. There were no complications. The patient tolerated the procedure well and proceeded to the recovery room in stable condition. Both mother and infant are resting comfortably in recovery.
[2024-02-12] MEDS ORDERED: diphenhydrAMINE 50 MG CAP PO PRN (19:25)
[2024-02-12] MEDS ORDERED: SIMETHICONE 80 MG CHEWABLE PO PRN (19:25)
[2024-02-12] MEDS ORDERED: OXYTOCIN 30 UNITS/500 ML NS 30 UNIT in SALINE 1 500ML.BAG IV SCH (19:25)
[2024-02-12] MEDS ORDERED: ONDANSETRON 4 MG/2 ML VIAL IVP PRN (19:25)
[2024-02-12] MEDS ORDERED: NALOXONE 0.4 MG/ML 1 ML VIAL IV PRN (19:25)
[2024-02-12] MEDS ORDERED: ZOLPIDEM 5 MG TAB PO PRN (19:25)
[2024-02-12] MEDS ORDERED: METOCLOPRAMIDE 5 MG/ML 2 ML VIAL IVP PRN (19:25)
[2024-02-12] MEDS ORDERED: diphenhydrAMINE 50 MG/ML 1 ML VIAL IVP PRN (19:25)
[2024-02-12] MEDS: ACETAMINOPHEN IV (For NPO) 1,000 MG in EMPTY BAG 1 BAG IVPB ONE (20:07)
[2024-02-12] MEDS: LACTATED RINGERS 1,000 ML IV SCH (20:08)
[2024-02-13] MEDS: diphenhydrAMINE 50 MG/ML 1 ML VIAL IVP PRN (01:29)
[2024-02-13] MEDS: ACETAMINOPHEN TAB 500 MG TAB PO SCH (02:16)
[2024-02-13] MEDS: IBUPROFEN IV 800 MG in SODIUM CHLORIDE 0.9% 250 ML IV SCH (02:30)
[2024-02-13] MEDS: SENNOSIDES-DOCUSATE SODIUM 1 EACH TAB PO SCH (03:41)
[2024-02-13 05:09] LABS: Basophils % (A) 0 %; Eosinophils # (A) 0.2 k/uL (0-0.7); Eosinophils % (A) 2 %; HCT 31.6 % (34.0-46.0); HGB 10.4 gm/dL (11.4-16.0); Lymphocytes # (A) 1.3 k/uL (1.0-4.8); Lymphocytes % (A) 13 %; MCH 30.5 pg (25.0-35.0); MCHC 33.1 g/dL (31.0-37.0); MCV 92.2 fL (80.0-100.0); Mean Platelet Volume 9.5; Monocytes # (A) 0.4 k/uL (0-1.0); Monocytes % (A) 4 %; Neutrophils # (A) 8.2 k/uL (1.3-7.7); Neutrophils % (A) 80 %; Platelet Count 170 k/uL (150-450); RBC 3.43 m/uL (3.80-5.40); RDW 13.9 % (11.5-15.5); WBC 10.2 k/uL (3.8-10.6)
--- NOTE | 2024-02-13 06:45 | P.PN ---
Progress Note - Text Progress Note Date: 02/13/24 Postoperative day 1 status post section under epidural anesthesia, and epidural morphine given for postoperative analgesia, patient doing well, there is no anesthesia related complications, Patient had no headache, vital signs stable , VAS 3/10, using oral pain medication Assessment and plan= postop day 1 status post , doing well there is no anesthesia related complication.
--- NOTE | 2024-02-13 08:43 | P.PNOBGPC ---
Subjective - Subjective Principal diagnosis: POD 1 LTCS Interval history: Patient is doing well post operatively. She is ambulating and voiding without difficulty, She is tolerating a regular diet without nausea or vomiting. lochia is minimal. Pain is well controlled Breast feeding is going well Patient reports: Reports appetite normal, Reports voiding normally, Reports pain well controlled, Reports ambulating normally [place]: doing well, nursing well Objective - Vital Signs Latest vital signs: Vital Signs Temp Pulse Resp BP Pulse Ox 02/13/24 08:31 98.1 F 75 16 106/70 95 02/13/24 04:00 94 16 108/66 02/12/24 23:47 98.3 F 91 16 106/68 96 02/12/24 21:02 100 16 105/61 02/12/24 20:47 111 H 16 110/60 02/12/24 20:32 115 H 18 111/67 96 02/12/24 20:17 109 H 16 112/87 95 02/12/24 20:02 116 H 16 110/66 95 02/12/24 19:47 104 H 16 101/59 98 02/12/24 19:32 109 H 16 108/63 98 02/12/24 19:17 103 H 18 103/43 96 02/12/24 19:02 98.1 F 103 H 18 113/56 95 Intake and Output 02/12/24 02/13/24 02/13/24 22:59 06:59 14:59 Intake Total 600 Output Total 1115 1000 Balance -1115 -400 Intake: Oral 600 Output: Urine 400 1000 Uretheral (Cardenas) 1000 Output, Quantitative 715 Blood Loss Other: Voiding Method Indwelling Catheter Indwelling Catheter # Voids 1 # Bowel Movements 0 - Exam Extremities: Present: normal, edema Abdomen: Present: normal appearance, soft Incision: Present: normal, dry, intact Uterus: Present: normal, firm - Labs Labs: Abnormal Lab Results - Last 24 Hours (Table) 02/13/24 Range/Units 04:54 RBC 3.43 L (3.80-5.40) m/uL Hgb 10.4 L (11.4-16.0) gm/dL Hct 31.6 L (34.0-46.0) % Neutrophils # 8.2 H (1.3-7.7) k/uL Assessment and Plan (1) 36 to 37 weeks gestation of Current Visit: Yes Status: Acute Code(s): [id number] - SNOMED Code(s): 263598910 (2) PROM (premature rupture of membranes) Current Visit: Yes Status: Acute Code(s): O42.90 - SENA ROM, 7TH0 BETW RUPT & ONST LABR, UNSP WEEKS OF GEST SNOMED Code(s): 78721596 (3) Unicornuate uterus Current Visit: Yes Status: Acute Code(s): Q51.4 - UNICORNATE UTERUS SNOMED Code(s): 0524073 (4) Status post section Current Visit: Yes Status: Acute Code(s): Z98.891 - HISTORY OF UTERINE SCAR FROM PREVIOUS SURGERY SNOMED Code(s): 931836743 (5) Arrest of dilation, delivered, current hospitalization Current Visit: Yes Status: Acute Code(s): O62.1 - SECONDARY UTERINE INERTIA SNOMED Code(s): 59446323 Plan: Patient is doing well postoperatively, will continue routine post operative care. Anticipate discharge home tomorrow
[2024-02-13] MEDS: IBUPROFEN 800 MG TAB PO SCH (10:58)
[2024-02-13] MEDS: LORATADINE 10 MG TAB PO PRN (13:54)
[2024-02-14] MEDS ORDERED: IBUPROFEN 800 MG TAB PO SCH
[2024-02-14 00:15] VITALS: RESP 16
[2024-02-14] MEDS: diphenhydrAMINE 25 MG CAP PO PRN (02:04)
--- NOTE | 2024-02-14 09:47 | P.PNOBGPC ---
Subjective - Subjective Principal diagnosis: Postop day 2, primary arrest of dilation, unicornuate uterus Interval history: Patient is overall doing well postoperatively. She is struggling with breast- feeding secondary to a tongue-tie and the infant. Patient has moderate pain control, but is nervous about going home. Lochia is minimal to moderate. She is ambulating and voiding without difficulty. She is tolerating a regular diet without nausea or vomiting. Patient reports: Reports appetite normal, Reports voiding normally, Reports pain well controlled, Reports ambulating normally [place]: doing well Objective - Vital Signs Latest vital signs: Vital Signs Temp Pulse Resp BP Pulse Ox 02/14/24 08:00 97.6 F 75 16 119/75 99 02/14/24 00:00 98.6 F 79 16 114/73 97 02/13/24 16:00 97.9 F 79 17 104/76 97 02/13/24 12:44 97.8 F 02/13/24 11:39 99.4 F 78 16 101/66 93 L Intake and Output 02/13/24 02/14/24 02/14/24 22:59 06:59 14:59 Other: # Voids 1 2 2 - Exam Extremities: Present: normal, edema Abdomen: Present: normal appearance, soft Incision: Present: normal, dry, intact Uterus: Present: normal, firm Assessment and Plan (1) 36 to 37 weeks gestation of Current Visit: Yes Status: Acute Code(s): BSW2113 - SNOMED Code(s): 089064448 (2) PROM (premature rupture of membranes) Current Visit: Yes Status: Acute Code(s): O42.90 - SENA ROM, 7TH0 BETW RUPT & ONST LABR, UNSP WEEKS OF GEST SNOMED Code(s): 52873887 (3) Unicornuate uterus Current Visit: Yes Status: Acute Code(s): Q51.4 - UNICORNATE UTERUS SNOMED Code(s): 8398493 (4) Status post section Current Visit: Yes Status: Acute Code(s): Z98.891 - HISTORY OF UTERINE SCAR FROM PREVIOUS SURGERY SNOMED Code(s): 091126390 (5) Arrest of dilation, delivered, current hospitalization Current Visit: Yes Status: Acute Code(s): O62.1 - SECONDARY UTERINE INERTIA SNOMED Code(s): 15565808 Plan: Overall patient is doing well, will adjust pain medication as necessary for pain control. Continue routine postoperative care
--- NOTE | 2024-02-15 06:33 | P.DS ---
Providers Date of admission: 02/11/24 10:16 Expected date of discharge: 02/15/24 Attending physician: Elvie Byrne Primary care physician: Stated None - Discharge Diagnosis(es) (1) 36 to 37 weeks gestation of Current Visit: Yes Status: Acute (2) PROM (premature rupture of membranes) Current Visit: Yes Status: Acute (3) Unicornuate uterus Current Visit: Yes Status: Acute (4) Status post section Current Visit: Yes Status: Acute (5) Arrest of dilation, delivered, current hospitalization Current Visit: Yes Status: Acute Hospital Course: 24-year-old 2 now para 1-0-1-1 that presented to labor and delivery at 36-5/7 weeks, on 1118 with complaints of spontaneous rupture of membranes. Patient states she thinks her water broke the day prior with passage of her mucous plug. Patient did not wear a pad and but AmniSure was noted to be positive. Patient was admitted to labor and delivery and Dilapan was placed for induction of labor. On 02/11 Dilapan was removed patient was noted to be 4 cm. Amniotomy was performed clear fluid was noted. Patient was begun on Pitocin for augmentation of labor. Patient progressed through the day to 4 to 5 cm. That evening patient was counseled on lack of progress and arrest of descent as increasing caput was noted. Options were reviewed and patient elected to proceed with primary low-transverse section. Patient was taken back to the operating suite where was performed without difficulty. Patient delivered a viable male at 1836, weight of 6 pounds 9 ounces, 2970 g. Patient's postoperative course has been essentially uneventful. On this postoperative day #3 patient is doing well overall. She is ambulating and voiding without difficulty. Her pain is well-controlled with oral pain medication. She is breast-feeding. Patient Condition at Discharge: Good Plan - Discharge Summary New Discharge Prescriptions: No Action Aspirin 81 mg PO DAILY Levothyroxine Sodium [Synthroid] 50 mcg PO DAILY Cetirizine HCl [Zyrtec] 10 mg PO DAILY Unk Metformin (750) 1 tab PO BID Unk Vitamin 1 tab PO DAILY Discharge Medication List Aspirin 81 mg PO DAILY 03/07/23 [History] Cetirizine HCl [Zyrtec] 10 mg PO DAILY 03/07/23 [History] Levothyroxine Sodium [Synthroid] 50 mcg PO DAILY 03/07/23 [History] Unk Metformin (750) 1 tab PO BID 03/07/23 [History] Unk Vitamin 1 tab PO DAILY 03/07/23 [History] Follow up Appointment(s)/Referral(s): Elvie Byrne DO [Doctor of Osteopathic Medicine] - 03/25/24 11:30 am (Post C/S Appointment 02-26-2024 at 8:30am) Patient Instructions/Handouts: (DC), (GEN) Activity/Diet/Wound Care/Special Instructions: No tub baths or intercourse until 6 weeks postoperatively. Hexo-mjr-[id number] ibuprofen 600 mg or 3 tablets every 6 hours as needed for pain. Patient is to schedule a 2-week postoperative check for an incision check. Discharge Disposition: HOME SELF-CARE
[2024-02-15 10:03] VITALS: BP 118/68; PULSE 76; TEMP 98.5
== END 2024-02-15 14:03 | disposition home or self-care (01) | DRG 788 ==
LOC: FBPOP 09:40 → 4FBP 10:16
PROVIDERS: ADMIT Obstetrics & Gynecology Obstetrics; ATTEND Obstetrics & Gynecology Obstetrics
PROC: 3E0P7VZ Introduction of Hormone into Female Reproductive, Via Natural or Artificial Opening (ICD-10-PCS; 2024-02-12)
PROC: 10D00Z1 Extraction of Products of Conception, Low, Open Approach (ICD-10-PCS; principal; 2024-02-12 18:30)
DX: O42.913 Preterm premature rupture of membranes, unspecified as to length of time between rupture and onset of labor, third trimester (principal); E03.9 Hypothyroidism, unspecified; O34.03 Maternal care for unspecified congenital malformation of uterus, third trimester; Z37.0 Single live birth; O62.0 Primary inadequate contractions; O62.1 Secondary uterine inertia; O99.284 Endocrine, nutritional and metabolic diseases complicating childbirth; Z3A.36 36 weeks gestation of pregnancy; Q51.4 Unicornate uterus; Z79.82 Long term (current) use of aspirin; Z79.890 Hormone replacement therapy
CPT/HCPCS: 59025; 84112; 85025; 86850; 86900; 86901; 99213